=== PATIENT | male | born 2005 | race Two or more races ===

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

== ENCOUNTER 2024-03-22 13:22 | Emergency (ER) | payer OTHER ==
[~2024-03-22] VITALS: Ht 162.6 cm; Wt 51.3 kg
[~2024-03-22 13:22] MED LIST changes: +CLARITIN5 MG PO
[2024-03-22] MEDS ORDERED: ACETAMINOPHEN 500 MG GEL..CAP PO STA (14:00)
[2024-03-22] MEDS ORDERED: KETOROLAC TROMETHAMINE 30 MG VIAL IV ONE (14:00)
[2024-03-22] MEDS ORDERED: KETOROLAC TROMETHAMINE 30 MG VIAL ONE (14:10)
[2024-03-22] MEDS ORDERED: ACETAMINOPHEN 500 MG GEL..CAP PO ONE (14:10)
== END 2024-03-22 16:08 | disposition home or self-care (01) ==
LOC: ER 13:23 → EMR PED 13:36 → ER 13:36 → EMR PED 16:08
DX: S52.502A Unspecified fracture of the lower end of left radius, initial encounter for closed fracture (principal); W19.XXXA Unspecified fall, initial encounter; Y93.67 Activity, basketball; Y92.214 College as the place of occurrence of the external cause; Y99.9 Unspecified external cause status; Z91.013 Allergy to seafood

== ENCOUNTER 2024-03-30 10:47 | Outpatient (CLI) | payer OTHER | END 2024-03-30 11:02 | disposition home or self-care (01) | LOC: RAD 10:47 | PROVIDERS: ATTEND Orthopaedic Surgery | DX: S52.502A Unspecified fracture of the lower end of left radius, initial encounter for closed fracture (principal) ==

== ENCOUNTER 2024-04-26 13:33 | Outpatient (CLI) | payer OTHER | END 2024-04-26 13:44 | disposition home or self-care (01) | LOC: RAD 13:33 | PROVIDERS: ATTEND Orthopaedic Surgery | DX: S52.532D Colles' fracture of left radius, subsequent encounter for closed fracture with routine healing (principal) ==

== ENCOUNTER 2024-06-15 12:09 | Outpatient (CLI) | payer OTHER | END 2024-06-15 12:14 | disposition home or self-care (01) | LOC: RAD 12:09 | PROVIDERS: ATTEND Orthopaedic Surgery | DX: S52.532D Colles' fracture of left radius, subsequent encounter for closed fracture with routine healing (principal) ==